=== PATIENT | male | born 1985 | race Caucasian/White ===

== ENCOUNTER 2016-05-14 18:30 | Emergency (ER) | payer BC ==
[2016-05-14 18:48] VITALS: BP 165/95; PULSE 99; RESP 18; TEMP 98.7
--- NOTE | 2016-05-14 19:12 | ED ---
General Adult HPI - General Chief complaint: Upper Respiratory Infection Stated complaint: ENT Time Seen by Provider: 05/14/16 18:53 Source: patient, RN notes reviewed Mode of arrival: ambulatory Limitations: no limitations - History of Present Illness Initial comments: This is a 30-year-old male presents with cough, sore throat, headache 2 days. Patient states the cough is mostly dry but sometimes productive. Patient is unsure if he has had a fever. Patient states there are sick contacts at home with similar symptoms. Patient did not get a flu shot this year. Patient denies any shortness of breath. Patient states the sore throat started before the cough. Patient also complains of congestion. Patient denies any otalgia. Patient denies any recent shortness breath, chest pain, abdominal pain, nausea/ vomiting/diarrhea, back pain, numbness, tingling, hematuria, or visual changes , or any other complaints. - Related Data Home Medications Medication Instructions Recorded Confirmed Guaifenesin/Pseudoephedrne HCl 1 tab PO Q12H PRN 05/14/16 05/14/16 [Mucinex D ER Tablet] Allergies Allergy/AdvReac Type Severity Reaction Status Date / Time No Known Allergies Allergy Verified 05/14/16 18:57 Review of Systems ROS Statement: Those systems with pertinent positive or pertinent negative responses have been documented in the HPI. ROS Other: All systems not noted in ROS Statement are negative. Past Medical History Past Medical History: No Reported History Past Surgical History: No Surgical Hx Reported Past Psychological History: No Psychological Hx Reported Smoking Status: Current every day smoker Past Alcohol Use History: Occasional Past Drug Use History: None Reported General Exam - General Exam Comments Initial Comments: General: The patient is awake and alert, in no distress, and does not appear acutely ill. Eye: Pupils are equal, round and reactive to light, extra-ocular movements are intact. No nystagmus. There is normal conjunctiva bilaterally. No signs of icterus. Ears: TMs pink and pearly with intact cone of light bilaterally. Normal external ear canals Nose: Nasal turbinates erythematous and edematous. Mouth and throat: There is erythema to the posterior pharynx with enlarged tonsils. There are moist mucous membranes and no oral lesions. Neck: Mild anterior cervical chain lymphadenopathy present. The neck is supple , there is no tenderness or JVD. Cardiovascular: There is a regular rate and rhythm. No murmur, rub or gallop is appreciated. Respiratory: Lungs are clear to auscultation, respirations are non-labored, breath sounds are equal. No wheezes, stridor, rales, or rhonchi. Musculoskeletal: Normal ROM, no tenderness. Strength 5/5. Sensation intact. Radial Pulses equal bilaterally 2+. Neurological: A&O x 3. CN II-XII intact, There are no obvious motor or sensory deficits. Coordination appears grossly intact. Speech is normal. Skin: Skin is warm and dry and no rashes or lesions are noted. Psychiatric: Cooperative, appropriate mood & affect, normal judgment. Limitations: no limitations Course Vital Signs 05/14/16 18:45 Temperature 98.7 F Pulse Rate 99 Respiratory 18 Rate Blood Pressure 165/95 O2 Sat by Pulse 99 Oximetry Medical Decision Making - Medical Decision Making This is a 30-year-old male presents with cough, congestion, headache and sore throat 2 days. On physical exam patient is afebrile in the EC. There is erythema to the posterior pharynx with enlarged tonsils. There are moist mucous membranes and no oral lesions. There is erythema to the nasal turbinates and nasal turbinates are mildly edematous. Rapid strep and influenza were checked and came back negative. Chest x-ray is done and reviewed showing:No acute cardiopulmonary process. Reported by Dr. Jensen. Discussed results with patient. I discussed that this most likely a viral upper respiratory infection. Discussed supportive [id number] treatment and Tylenol or Motrin as needed for any pain or fever symptoms. I discussed return parameters.Discussed that patient should follow up with PCP in one to 2 days or return to the [facility] for any worsening symptoms or any further concerns. Patient was receptive to this plan patient was discharged home. - Lab Data Lab Results 05/14/16 05/14/16 Range/Units 19:07 19:07 Influenza Type A RNA Not Detected (Not Detectd) Influenza Type B (PCR) Not Detected (Not Detectd) Group A Strep Rapid Negative (Negative) Disposition Clinical Impression: Upper respiratory infection Disposition: HOME SELF-CARE Condition: Good Instructions: Upper Respiratory Infection (ED) Additional Instructions: Please use [id number] decongestants and cough medicines. Please over-the- counter Tylenol or Motrin as needed for any pain or fever symptoms. Please follow-up the PCP in 1-2 days or return to the [facility] for any worsening symptoms or for any further concerns. Referrals: None,Stated [Primary Care Provider] - 1-2 days Corey Gregory MD [REFERRING] - 1-2 days Weston Pool III, MD [STAFF PHYSICIAN] - 1-2 days Maranda Mendes MD [STAFF PHYSICIAN] - 1-2 days Time of Disposition: 20:26
--- NOTE | 2016-05-14 20:07 | XR ---
EXAMINATION TYPE: XR chest 2V DATE OF EXAM: 05/14/2016 7:36 PM COMPARISON: NONE HISTORY: Cough and congestion for 3 days TECHNIQUE: Frontal and lateral views of the chest are obtained. FINDINGS: There is no focal air space opacity, pleural effusion, or pneumothorax seen. The cardiac silhouette size is within normal limits. The osseous structures are intact. IMPRESSION: No acute cardiopulmonary process.
== END 2016-05-14 20:30 | disposition home or self-care (01) ==
LOC: EC 18:30
DX: J06.9 Acute upper respiratory infection, unspecified (principal); F17.200 Nicotine dependence, unspecified, uncomplicated
CPT/HCPCS: 71020; 87081; 87430; 87502; 99283